=== PATIENT | male | born 1985 | race African-American/Black ===

== ENCOUNTER 2021-07-05 12:37 | Emergency (ER) | payer OTHER ==
[~2021-07-05] VITALS: Ht 172.7 cm; Wt 91.6 kg
[2021-07-05] MEDS ORDERED: CLONAZEPAM0.5 MG PO (12:53)
== END 2021-07-05 14:21 | disposition home or self-care (01) ==
LOC: ER 12:37
DX: F41.0 Panic disorder [episodic paroxysmal anxiety] (principal)